=== PATIENT | male | born 1955 | race Asian ===

== ENCOUNTER 2017-05-14 22:22 | Emergency (ER) | payer BC ==
[2017-05-14 22:29] VITALS: BP 150/100; PULSE 58; TEMP 97; BMI 17.2
--- NOTE | 2017-05-14 22:56 | PDOC ---
History of Present Illness - General Chief Complaint: Lightheaded Stated Complaint: FALL,LIGHT HEADED Time Seen by Provider: 05/14/17 22:29 History Source: Patient - History of Present Illness Initial Comments: 05/14/17 22:56 Patient is a 61 y.o male with a PMH of HTN and NIDDM who presents after a fall today. Family @ bedside assists in history. Patient was walking from the table to the couch and fell backwards hitting his head. Patient had LOC for less than 1 minute and patient's cousin (hospitalist in [place]) noted that patient had some slurred speech immediately upon awakening that resolved within a few minutes. Patient denies any nausea, vomiting, headache, visual changes or altered mental status. Patient's family gave patient ASA (81 mg x4) at home and brought patient to ED for further evaluation. Past History - Past Medical History Allergies/Adverse Reactions: Allergies Allergy/AdvReac Type Severity Reaction Status Date / Time No Known Allergies Allergy Verified 05/14/17 22:28 Diabetes: Yes (niddm) Thyroid Disease: Yes (hypo) - Suicide/Smoking/Psychosocial Hx Smoking History: Never smoked Review of Systems - Review of Systems Constitutional: No: Chills, Fever HEENTM: No: Blurred Vision Respiratory: No: Shortness of Breath Cardiac (ROS): No: Chest Pain ABD/GI: No: Nausea, Vomiting *Physical Exam - Vital Signs Last Vital Signs Temp Pulse Resp BP Pulse Ox 97 F L 58 L 18 150/100 99 05/14/17 22:24 05/14/17 22:24 05/14/17 22:24 05/14/17 22:24 05/14/17 22:24 - Physical Exam General Appearance: Yes: Nourished, Appropriately Dressed HEENT: positive: EOMI, RONNY Respiratory/Chest: positive: Lungs Clear Cardiovascular: positive: S1, S2 Gastrointestinal/Abdominal: positive: Soft Integumentary: positive: Normal Color, Dry, Warm Neurologic: positive: networker II-XII NML intact, Fully Oriented, Alert, Motor Strength 5/5, Responsive. negative: Facial Droop, Confused, Disoriented ED Treatment Course - LABORATORY CBC & Chemistry Diagram: 05/14/17 23:09 05/14/17 23:09 Medical Decision Making - Medical Decision Making 05/15/17 00:08 Patient is a 61 y.o. male with a PMH of NIDDM who presents after a fall with resolved slurred speech. Initial DDx includes r/o CVA vs. cardiogenic vs. neurogenic vs. orthostatic. NIHSS Stroke Scale is 0. Head CT negative for acute intracranial process and CBC shows no anemia. EKG shows Sinus Rhythm with HR 58, normal intervals, no ST elevations/depressions the latter indicating acute ischemic change. As patient's family did not wish to wait for orthostatic vital signs patient was discharged home with family -- many of whom are physicians and indicated they are well aware of post-concussion care. *DC/Admit/Observation/Transfer Diagnosis at time of Disposition: Concussion - Discharge Dispostion Disposition: HOME Condition at time of disposition: Good Admit: No - Referrals Referrals: Tiburcio Ireland DO [Staff Physician] - - Patient Instructions Printed Discharge Instructions: DI for Concussion Additional Instructions: Please return to the Emergency Department should you experience any confusion, severe headache, vomiting or concerning symptoms. A referral to neurology has been provided to you. Please follow up with your PCP as well. Thank you.
--- NOTE | 2017-05-14 23:18 | PDOC ---
Attending Attestation - Resident Resident Name: Janet Jeter
[2017-05-14 23:26] LABS: BASOPHIL 1.6 % (0-2.0); EOSINOPHIL 5.3 % (0-4.5); MCH 27.7 pg (25.7-33.7); MEAN CELL VOLUME 81.3 fl (80-96); MEAN PLT VOLUME 9.6 fl (7.5-11.1); NEUTROPHILS 55.9 % (42.8-82.8); PLATELET COUNT 222 K/MM3 (134-434); RDW 13.9 % (11.9-15.9); WHITE BLOOD COUNT 7.7 K/mm3 (4.0-10.0)
--- NOTE | 2017-05-14 23:27 | PDOC ---
NIH Stroke Scale - Last Known Well Date/Time & Onset Date Last Known Well: 05/14/17 Time Last Known Well: 07:30 - Initial Evaluation Level of consciousness: Alert Ask patient the month and their age: Answers both correctly Ask patient to open & close eyes; make fist and let go: Obeys both correctly Best gaze (horizontal eye movement): Normal Visual field testing: No visual field loss Facial paresis (Show teeth/raise eyebrows/close eyes tight): Normal symmetrical movement Motor Function: Left Arm: Normal Motor Function: Right Arm: Normal (extends arm 90 (or 45) degrees for 10 seconds without drift Motor Function: Left Leg: Normal (extends leg 30 degrees for 5 seconds without drift) Motor Function: Right Leg: Normal (extends leg 30 degrees for 5 seconds without drift) Limb Ataxia: No ataxia Sensory(Use pinprick test arms,legs,trunk,face/side to side): Normal Best language (Describe picture, name items, read sentences): No Aphasia Dysarthria (read several words): Normal articulation Extinction and Inattention: No abnormality - Total Score NIH Stroke Scale Score: 0 <Olivier Hernandez - Last Filed: 05/15/17 05:50> - Last Known Well Date/Time & Onset Date Last Known Well: 05/14/17 Time Last Known Well: 07:30 - Initial Evaluation Level of consciousness: Alert Ask patient the month and their age: Answers both correctly Ask patient to open & close eyes; make fist and let go: Obeys both correctly Best gaze (horizontal eye movement): Normal Visual field testing: No visual field loss Facial paresis (Show teeth/raise eyebrows/close eyes tight): Normal symmetrical movement Motor Function: Left Arm: Normal Motor Function: Right Arm: Normal (extends arm 90 (or 45) degrees for 10 seconds without drift Motor Function: Left Leg: Normal (extends leg 30 degrees for 5 seconds without drift) Motor Function: Right Leg: Normal (extends leg 30 degrees for 5 seconds without drift) Limb Ataxia: No ataxia Best language (Describe picture, name items, read sentences): No Aphasia Dysarthria (read several words): Normal articulation Extinction and Inattention: No abnormality <Janet Jeter - Last Filed: 05/17/17 07:04> <Olivier Hernandez - Last Filed: 05/15/17 05:50> <Janet Jeter - Last Filed: 05/17/17 07:04>
[2017-05-14] MEDS ORDERED: ALBUTEROL SO4 2.5/IPRATROPIUM 0.5 INH SOL 3 ML VIAL.NEB. NEB ONE (23:41)
[2017-05-14] MEDS ORDERED: predniSONE 20 MG TABLET (UD) PO ONE (23:43)
[2017-05-14 23:56] LABS: ALBUMIN 3.9 g/dl (3.4-5.0); ALK PHOS 155 U/L (45-117); ANION GAP 9 (8-16); BILIRUBIN,TOTAL 0.2 mg/dL (0.2-1.0); CALCIUM 9.2 mg/dL (8.5-10.1); CO2 28 mmol/L (21-32); CREATININE 1.2 mg/dL (0.7-1.3); GLUCOSE,RANDOM 246 mg/dL (74-106); SGOT/AST 27 U/L (15-37); SGPT/ALT 37 U/L (12-78)
--- NOTE | 2017-05-15 00:16 | PDOC ---
Attending Attestation - Resident Resident Name: Janet Jeter - ED Attending Attestation I have performed the following: I have examined & evaluated the patient, The case was reviewed & discussed with the resident, I agree w/resident's findings & plan, Exceptions are as noted - HPI HPI: 05/15/17 00:15 Fall, Hit Head, Transient LOC, Prior to presentation - Physicial Exam PE: 05/15/17 00:15 NIH 0, VSS/NAD - Medical Decision Making 05/15/17 00:[address] Jeter's Assessment and Plan NIH Stroke Scale - Last Known Well Date/Time & Onset Date Last Known Well: 05/14/17 Time Last Known Well: 07:30 - Initial Evaluation Level of consciousness: Alert Ask patient the month and their age: Answers both correctly Ask patient to open & close eyes; make fist and let go: Obeys both correctly Best gaze (horizontal eye movement): Normal Visual field testing: No visual field loss Facial paresis (Show teeth/raise eyebrows/close eyes tight): Normal symmetrical movement Motor Function: Left Arm: Normal Motor Function: Right Arm: Normal (extends arm 90 (or 45) degrees for 10 seconds without drift Motor Function: Left Leg: Normal (extends leg 30 degrees for 5 seconds without drift) Motor Function: Right Leg: Normal (extends leg 30 degrees for 5 seconds without drift) Limb Ataxia: No ataxia Sensory(Use pinprick test arms,legs,trunk,face/side to side): Normal Best language (Describe picture, name items, read sentences): No Aphasia Dysarthria (read several words): Normal articulation Extinction and Inattention: No abnormality - Total Score NIH Stroke Scale Score: 0
[2017-05-15 00:42] LABS: INR 1.04 (0.82-1.09); PROTHROMBIN TIME (PATIENT) 11.7 SEC (9.98-11.88)
[2017-05-15 00:45] LABS: ACTIVATED PTT 29.3 SECONDS (26.9-34.4)
--- NOTE | 2017-05-15 09:37 | EKG ---
Test Reason : Blood Pressure : / mmHG Vent. Rate : 058 BPM Atrial Rate : 058 BPM P-R Int : 146 ms QRS Dur : 082 ms QT Int : 380 ms P-R-T Axes : 065 073 065 degrees QTc Int : 373 ms SINUS BRADYCARDIA OTHERWISE NORMAL ECG NO PREVIOUS ECGS AVAILABLE Confirmed by OFELIA PALOMO, IVONNE ([id number]) on 05/15/2017 9:37:01 AM Referred By: Confirmed By:IVONNE GILBERT MD
== END 2017-05-15 00:29 | disposition home or self-care (01) ==
LOC: JER 22:22
DX: S06.9X1A Unspecified intracranial injury with loss of consciousness of 30 minutes or less, initial encounter (principal); W01.198A Fall on same level from slipping, tripping and stumbling with subsequent striking against other object, initial encounter; Y93.01 Activity, walking, marching and hiking; Y92.018 Other place in single-family (private) house as the place of occurrence of the external cause; I10 Essential (primary) hypertension; E11.9 Type 2 diabetes mellitus without complications; Z79.84 Long term (current) use of oral hypoglycemic drugs; E03.9 Hypothyroidism, unspecified
CPT/HCPCS: 36415; 70450-TC; 71020-TC; 80053; 83735; 85025; 85610; 85730; 86850; 86900; 86901; 93005; 93010; 99283-25